=== PATIENT | male | born 1985 | race Caucasian/White ===

== ENCOUNTER 2020-10-08 00:39 | Observation (INO) | payer SELFPAY ==
[2020-10-08 02:19] LABS: ABSOLUTE EOSINOPHILS # (AUTO) 0.3 10^3/uL (0.0-0.6); ABSOLUTE LYMPHOCYTES (AUTO) 1.5 10^3/uL (0.5-4.7); ABSOLUTE MONOCYTES (AUTO) 0.7 10^3/uL (0.1-1.4); ABSOLUTE NEUT (AUTO) 5.8 10^3/uL (1.7-8.2); BASOPHILS % (AUTO) 0.3 % (0-2); EOSINOPHILS % (AUTO) 3.5 % (0-6); HEMATOCRIT 47.1 % (37.9-51.0); HEMOGLOBIN 16.4 g/dL (13.5-17.0); LYMPHOCYTES % (AUTO) 17.5 % (13-45); MEAN CORPUSCULAR HEMOGLOBIN 30.4 pg (27.0-33.4); MEAN CORPUSCULAR HGB CONC 34.9 g/dL (32.0-36.0); MEAN CORPUSCULAR VOLUME 87 fl (80-97); MONOCYTES % (AUTO) 8.2 % (3-13); PLATELET COUNT 268 10^3/uL (150-450); RED BLOOD COUNT 5.41 10^6/uL (4.35-5.55); RED CELL DISTRIBUTION WIDTH 13.3 % (11.5-14.0); SEGMENTED NEUTROPHILS % (AUTO) 70.5 % (42-78); TOTAL CELLS COUNTED % (AUTO) 100 %; WHITE BLOOD COUNT 8.3 10^3/uL (4.0-10.5)
[2020-10-08 02:24] LABS: ALBUMIN 4.6 g/dL (3.5-5.0); ALKALINE PHOSPHATASE 57 U/L (38-126); ANION GAP 10 (5-19); ASPARTATE AMINO TRANSFERASE 27 U/L (17-59); BILIRUBIN,DIRECT 0.1 mg/dL (0.0-0.4); BILIRUBIN,TOTAL 0.8 mg/dL (0.2-1.3); BLOOD UREA NITROGEN 12 mg/dL (7-20); CARBON DIOXIDE 29 mmol/L (22-30); CHLORIDE 100 mmol/L (98-107); CREATINE KINASE 81 U/L (55-170); GLUCOSE 108 mg/dL (75-110); POTASSIUM 4.1 mmol/L (3.6-5.0); TOTAL PROTEIN 7.6 g/dL (6.3-8.2)
[2020-10-08 02:38] LABS: CREATINE KINASE MB 1.23 ng/mL (<4.55)
[2020-10-08 02:40] LABS: TROPONIN I < 0.012 ng/mL
[2020-10-08] MEDS ORDERED: BENZONATATE 100 MG CAPSULE PO ONE (03:07)
[2020-10-08] MEDS ORDERED: ONDANSETRON 4 MG TAB.RAPDIS PO ONE (03:21)
[2020-10-08] MEDS ORDERED: ACETAMINOPHEN 325 MG TABLET PO ONE (03:21)
--- NOTE | 2020-10-08 03:48 | ER Document Report ---
ED General <JOLIE SOLANO - Last Filed: 10/08/20 08:24> <WERNER LEYVA - Last Filed: 10/08/20 13:40> - General Chief Complaint: Flu Symptoms Stated Complaint: ABDOMINAL PAIN/CHILLS/FEVER/NAUSEA Time Seen by Provider: 10/08/20 03:04 Notes: Patient is a 35-year-old male no past medical history presents to the emergency department with a chief complaint of abdominal pain, chills, feeling feverish, diarrhea, and vomiting. Patient states that he had his symptoms for the past 3 days. Reports a cough. 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 Patient reports the pain is in his right upper quadrant. States that it is constant. Denies any past medical history. Patient does not take any medications on a regular basis. Patient has history of an appendectomy. (JOLIE SOLANO) - Related Data Allergies/Adverse Reactions: No Known Allergies Allergy (Verified 10/08/20 01:08) Past Medical History - Social History Smoking Status: Current Every Day Smoker <JOLIE SOLANO - Last Filed: 10/08/20 08:24> - Social History Family History: Reviewed & Not Pertinent <WERNER LEYVA - Last Filed: 10/08/20 13:40> Review of Systems <JOLIE SOLANO - Last Filed: 10/08/20 08:24> - Review of Systems Notes: REVIEW OF SYSTEMS: CONSTITUTIONAL : Denies recent illness. Denies recent unintentional weight loss. See HPI. EENT: Denies eye, ear, throat, or mouth pain, discharge, or symptoms. See HPI. CARDIOVASCULAR: Denies chest pain. RESPIRATORY: See HPI. GASTROINTESTINAL: See HPI. GENITOURINARY: Denies difficulty urinating, burning, blood in urine, urgency or frequency. MUSCULOSKELETAL: Denies neck and back pain. Denies joint pain or swelling. SKIN: Denies rash, itchiness, or lesions HEMATOLOGIC : Denies easy bruising or bleeding. LYMPHATIC: Denies swollen, painful, enlarged glands. NEUROLOGICAL: Denies no numbness or tingling denies weakness. Denies headache. Denies altered mental status. Denies alteration in speech. PSYCHIATRIC: Denies stress, anxiety, alteration in sleep patterns, or depression. All other systems reviewed and negative. (JOLIE SOLANO) Physical Exam <JOLIE SOLANO - Last Filed: 10/08/20 08:24> - Vital signs Vitals: Temp Pulse Resp BP Pulse Ox 97.9 F 102 H 20 126/93 H 98 10/08/20 00:48 10/08/20 00:48 10/08/20 00:48 10/08/20 00:48 10/08/20 00:48 - Notes Notes: PHYSICAL EXAMINATION: GENERAL: Appears well, healthy, well-nourished, no acute distress. HEAD: Normocephalic, atraumatic. EYES: PERRL, conjunctiva normal, all extraocular movements intact, sclera nonicteric ENT: Moist mucous membranes. NECK: Supple, no noticeable swelling, redness, rash. Normal range of motion. LUNGS: Equal breath sounds bilaterally and clear to auscultation. No wheezes rales or rhonchi. CARDIOVASCULAR: S1-S2, regular rate, regular rhythm. Radial pulses 2+, normal. ABDOMEN: Normoactive bowel sounds. Tender right upper quadrant. Guarding noted. EXTREMITIES: Normal strength and range of motion, no pitting or edema. No cyanosis. NEUROLOGICAL: Moves all extremities upon command. Strength 5/5 in all extremities. PSYCH: Normal mood, normal affect. SKIN: Warm, dry. No rash, lesions, ulcerations noted. Normal skin turgor. (JOLIE SOLANO) Course - Laboratory Results Result Diagrams: 10/08/20 01:45 10/08/20 01:45 <JOLIE SOLANO - Last Filed: 10/08/20 08:24> - Laboratory Results Result Diagrams: 10/08/20 01:45 10/08/20 01:45 Critical Laboratory Results Reviewed: No Critical Results - Radiology Results Critical Radiology Results Reviewed: No Critical Results <WERNER LEYVA - Last Filed: 10/08/20 13:40> - Re-evaluation Re-evalutation: 10/08/20 06:15 Hematology is unremarkable. Chemistries are also unremarkable. Troponin ordered in triage she is negative. LFTs are normal. Lipase is unremarkable. Influenza test is negative. I reassessed the patient and he still has right upper quadrant abdominal pain after receiving 1 mg of Dilaudid. From another dosing to see if this helps with his abdominal pain. 10/08/20 07:35 He continues to be in pain despite another milligram of Dilaudid. I spoke with Dr. Calzada, the surgeon on-call. He will evaluate the patient. (XIOMARAJOLIE M) 10/08/20 10:08 Dr. Calzada came to evaluate the patient at approximately 845 this morning. He advises the patient does not want to have surgery, he would like us to give the patient clear liquids. Nursing staff has come to me telling me that the patient had right upper quadrant cramping and diarrhea after having a clear fluids. The nursing floor supervisor called Dr. Calzada back and asked him to come down to reevaluate the patient. Dr. Mason has come back to department, he wants a rapid Covid done which is currently pending. We will await this to determine the final disposition of the patient 10/08/20 10:55 Rapid Covid is negative. I called and updated Dr. Calzada, Dr. Calzada is coming back to speak to the patient. 10/08/20 11:06 Dr. Beltran came back to see the patient, he would like the patient to have a low-fat regular diet, if he is able to tolerate this he will go home if he is unable to tolerate it he will be admitted and have a cholecystectomy done tomorrow. 10/08/20 13:12 Patient reports that he continues to have pain. He is very upset stating that no one has given him pain medications. Patient does admit that he has not asked for pain medicines nor has he communicated his pain with the nurse. Patient is stating that he wants to leave so he can go to another hospital. I have tried extensively to talk the patient into staying here so that he can be admitted by Dr. Calzada considering he is continuing to have pain after eating. I have also notified the charge nurse Phyllis also to that she can try to speak to the patient. I have placed an order for 4 mg of morphine IV in an attempt to get the patient's pain under control. 10/08/20 13:39 Patient now agrees to stay in the hospital. I have contacted Dr. Canales who agrees to admit the patient. Patient's pain has improved after administration of 4 mg of morphine. (WERNER LEYVA) - Vital Signs Vital signs: Temp Pulse Resp BP Pulse Ox 97.6 F 75 19 142/68 H 99 10/08/20 07:57 10/08/20 05:25 10/08/20 13:22 10/08/20 13:22 10/08/20 13:22 Discharge <XIOMARAJOLIE M - Last Filed: 10/08/20 08:24> - Discharge Admitting Provider: Surgicalist Unit Admitted: Surgical Floor <WERNER LEYVA - Last Filed: 10/08/20 13:40> - Discharge Clinical Impression: Cholelithiasis Qualifiers: Cholelithiasis location: gallbladder Cholecystitis presence: with cholecystitis Cholecystitis acuity: acute Biliary obstruction: without biliary obstruction Qualified Code(s): K80.00 - Calculus of gallbladder with acute cholecystitis without obstruction Abdominal pain Qualifiers: Abdominal location: right upper quadrant Qualified Code(s): R10.11 - Right upper quadrant pain Condition: Stable Disposition: ADMITTED OBSERVATION
--- NOTE | 2020-10-08 04:18 | RADIOLOGY REPORT (SQ) ---
AP Portable chest: 10/08/2020 3:17 AM COMMUNITY ORGANIZER History: 35-year old patient with cough. Comparison: None available Findings: The cardiomediastinal silhouette is normal in size. No pneumothorax is seen. No acute airspace opacities are seen. No discrete pleural effusion is apparent. Impression: No acute airspace opacities are seen.
--- NOTE | 2020-10-08 04:20 | RADIOLOGY REPORT (SQ) ---
Ultrasound of the right upper quadrant of the abdomen: 10/08/2020 3:17 AM JOINT SEALER Technique: Multiple grayscale color Doppler images of the right upper quadrant of the abdomen were obtained. Comparison: None available History: 35-year old patient with right upper quadrant abdominal pain. Findings: The visualized portions of the hepatic parenchyma appears diffusely echogenic. There is normal direction of flow seen in the main portal vein. Cholelithiasis is seen with no evidence of gallbladder wall thickening or pericholecystic fluid. Sonographic Smith's sign was positive. The common duct measures 2-3 mm. The right kidney measures up to 11.3 cm in length. The right kidney demonstrates normal cortical echogenicity with no evidence to suggest hydronephrosis. The visualized portions of the IVC, abdominal aorta, and pancreatic head appear normal. No free intraperitoneal fluid is seen. Impression: There is cholelithiasis with a positive sonographic Smith's sign. This could reflect evidence of acute cholecystitis in the appropriate clinical setting. Hepatic steatosis
[2020-10-08] MEDS ORDERED: HYDROMORPHONE HCL INJ/PF 2 MG/ML AMPULE IV ONE ×2 (04:58→06:14)
[2020-10-08] MEDS ORDERED: NORMAL SALINE 1000 ML 1,000 ML IV ONE (04:58)
[2020-10-08 05:20] LABS: A TYPE INFLUENZA AG NEGATIVE (NEGATIVE); B INFLUENZA AG NEGATIVE (NEGATIVE)
[2020-10-08] MEDS ORDERED: MORPHINE SULFATE 10 MG/ML INJ IV ONE (13:10)
[2020-10-08] MEDS ORDERED: ONDANSETRON HCL INJ/PF 4 MG/2 ML SDV IV ONE (13:19)
--- NOTE | 2020-10-08 13:22 | EKG REPORT ---
SEVERITY:- NORMAL ECG - SINUS RHYTHM : Confirmed by: Lalito Oliver 08-Oct-2020 13:21:56
[2020-10-08] MEDS ORDERED: PIPERACILLIN/TAZOBACTAM 3.375 GM VIAL IV ONE (13:39)
[2020-10-08] MEDS ORDERED: GLUCAGON,HUMAN RECOMB 1 MG INJ SUBCUT PRN (14:01)
[2020-10-08] MEDS ORDERED: MORPHINE SULFATE 10 MG/ML INJ IV PRN (14:01)
[2020-10-08] MEDS ORDERED: DEXTROSE 40% GEL 15 GM TUBE PO PRN ×2 (14:01)
[2020-10-08] MEDS ORDERED: DEXTROSE 50%-WATER 25 GM/50 ML DISP.SYRIN IV PRN ×2 (14:01)
--- NOTE | 2020-10-08 14:01 | PDOC H&P ---
History of Present Illness Admission Date/PCP: 10/08/2020 Patient complains of: Abdominal pains History of Present Illness: SYED KERNS is a 35 year old male who started having abdominal pains with diarrhea about 2 days ago. This was associated with nausea and vomiting and because of persistent pains went to ED. pains are primarily along the right upper quadrant and epigastric areas. An ultrasound of the gallbladder showed gallstones but no evidence of acute cholecystitis but patient had positive Smith sign. His white count is normal and LFTs are normal. Denies any fever nor chills. Patient initially refused surgery and attempted p.o. intake but failed. Patient unable to eat. He still continued to have pains of the right upper quadrant and epigastric areas and subsequently will be admitted for IV antibiotics and possible laparoscopic cholecystectomy tomorrow by Dr. Lee. Social History Smoking Status: Current Every Day Smoker Family History Family History: Reviewed & Not Pertinent Parental Family History Reviewed: Yes Children Family History Reviewed: No Sibling(s) Family History Reviewed.: No Medication/Allergy Home Medications: No Home Medications 10/08/20 Allergies/Adverse Reactions: No Known Allergies Allergy (Verified 10/08/20 01:08) Review of Systems Constitutional: PRESENT: as per HPI Gastrointestinal: PRESENT: abdominal pain, diarrhea, nausea, vomiting Physical Exam Vital Signs: Temp Pulse Resp BP Pulse Ox 97.6 F 75 19 142/68 H 99 10/08/20 07:57 10/08/20 05:25 10/08/20 13:22 10/08/20 13:22 10/08/20 13:22 Intake & Output 10/07/20 10/08/20 10/09/20 06:59 06:59 06:59 Intake Total 1000 Balance 1000 Weight 84 kg General appearance: PRESENT: mild distress Head exam: PRESENT: atraumatic Eye exam: PRESENT: conjunctiva pink Mouth exam: PRESENT: moist Neck exam: PRESENT: full ROM Respiratory exam: PRESENT: clear to auscultation irish Cardiovascular exam: PRESENT: RRR Pulses: PRESENT: normal radial pulses Vascular exam: PRESENT: normal capillary refill GI/Abdominal exam: PRESENT: soft, tenderness - Epigastric and right upper quadrant areas Rectal exam: PRESENT: deferred Extremities exam: PRESENT: full ROM Musculoskeletal exam: PRESENT: full ROM Neurological exam: PRESENT: alert, oriented to person, oriented to place, oriented to time, oriented to situation Psychiatric exam: PRESENT: appropriate affect Skin exam: PRESENT: normal color, warm Results Laboratory Results: 10/08/20 01:45 10/08/20 01:45 10/08/20 10/08/20 10/08/20 01:45 01:45 01:45 WBC 8.3 RBC 5.41 Hgb 16.4 Hct 47.1 MCV 87 MCH 30.4 MCHC 34.9 RDW 13.3 Plt Count 268 Seg Neutrophils % 70.5 Sodium 138.6 Potassium 4.1 Chloride 100 Carbon Dioxide 29 Anion Gap 10 BUN 12 Creatinine 1.14 Est GFR ( Amer) > 60 Glucose 108 Calcium 10.0 Total Bilirubin 0.8 AST 27 Alkaline Phosphatase 57 Total Protein 7.6 Albumin 4.6 Lipase 62.9 10/08/20 10/08/20 01:45 01:45 Creatine Kinase 81 CK-MB (CK-2) 1.23 Troponin I < 0.012 Assessment & Plan - Diagnosis (1) Nausea vomiting and diarrhea Is this a current diagnosis for this admission?: Yes (2) Abdominal pain Qualifiers: Abdominal location: right upper quadrant Qualified Code(s): R10.11 - Right upper quadrant pain Is this a current diagnosis for this admission?: Yes (3) Cholelithiasis Qualifiers: Cholelithiasis location: gallbladder Cholecystitis presence: with cholecy stitis Cholecystitis acuity: acute Biliary obstruction: without biliary obstruction Qualified Code(s): K80.00 - Calculus of gallbladder with acute cholecystitis without obstruction Is this a current diagnosis for this admission?: Yes - Time Time Spent: 30 to 50 Minutes Anticipated Discharge Disposition: Home, Self Care Anticipated Discharge Timeframe: within 48 hours - Inpatient Certification Medical Necessity: Need for IV Antibiotics, Need for Surgery - Plan Summary Plan Summary: 35-year-old male with abdominal pains nausea vomiting and diarrhea past 2 days. Pains persistent and went to ED today where he had an ultrasound of the gallbladder which showed gallstones with no definite evidence of cholecystitis. His white count is normal and his LFTs are normal. He was unable to eat or drink while in the ED and therefore was admitted for IV antibiotics and possible laparoscopic cholecystectomy tomorrow.
[2020-10-08] MEDS: DEXTROSE 5%-LACTATED RINGERS 1,000 ML IV PRN ×2 (15:58→21:39)
[2020-10-08] MEDS: ONDANSETRON HCL INJ/PF 4 MG/2 ML SDV IV PRN ×2 (16:00→21:39)
[2020-10-08] MEDS: KETOROLAC TROMETHAMINE INJ/PF 30 MG/1 ML SDV IV SCH (17:24)
[2020-10-08] MEDS ORDERED: PIPERACILLIN/TAZOBACTAM 3.375 GM VIAL IV SCH (18:00)
[2020-10-08] MEDS: PIPERACILLIN SODIUM/TAZOBACTAM 3.375 GM in NORMAL SALINE 100 ML IV SCH (21:39)
[2020-10-09] MEDS: KETOROLAC TROMETHAMINE INJ/PF 30 MG/1 ML SDV IV SCH ×2 (00:41→05:38)
[2020-10-09] MEDS: PIPERACILLIN SODIUM/TAZOBACTAM 3.375 GM in NORMAL SALINE 100 ML IV SCH (03:18)
[2020-10-09 04:27] VITALS: BP 101/44
[2020-10-09] MEDS: DEXTROSE 5%-LACTATED RINGERS 1,000 ML IV PRN (06:44)
--- NOTE | 2020-10-09 09:58 | PDOC PROGRESS REPORT ---
Subjective Date:: 10/09/20 Reason For Visit: CHOLELITHIASIS,ABDOMINAL PAIN Patient was seen at approximately 745 this morning. He had an uneventful night, and had no complaints. He last ate at 2:00 in the morning. He told the nurse he did not want to have surgery, and at bedside this morning he stated he did not want to be cut by anybody at [facility]. Physical Exam Vital Signs: Temp Pulse Resp BP Pulse Ox 97.7 F 63 15 101/44 L 98 10/09/20 03:26 10/09/20 03:26 10/09/20 03:26 10/09/20 03:26 10/09/20 03:26 Intake & Output 10/08/20 10/09/20 10/10/20 06:59 06:59 06:59 Intake Total 4204 Balance 4204 Weight 84 kg 86.2 kg General appearance: PRESENT: no acute distress GI/Abdominal exam: PRESENT: other - Soft, negligible tenderness, no peritoneal signs no rigidity. Results Laboratory Results: 10/08/20 01:45 10/08/20 01:45 10/08/20 10/08/20 01:45 01:45 Creatine Kinase 81 CK-MB (CK-2) 1.23 Troponin I < 0.012 Assessment & Plan - Diagnosis (1) Cholelithiasis Qualifiers: Cholelithiasis location: gallbladder Cholecystitis presence: with cholecystitis Cholecystitis acuity: acute Biliary obstruction: without biliary obstruction Qualified Code(s): K80.00 - Calculus of gallbladder with acute cholecystitis without obstruction Is this a current diagnosis for this admission?: Yes Plan: Impression symptomatic cholelithiasis, with likely chronic cholecystitis, normal LFTs, no evidence of sepsis. Patient refuses surgery at [facility] Recommendations: 1. I spent time at patient's bedside explaining may develop gallstone pancreatitis, retained common duct stone with cholangitis, and even sepsis by postponing surgery. In the least, he may end up back to the emergency department with similar symptoms, requiring a repeat work-up etc. 2. I told the patient we would short amount time discharging home. Approximately 1 hour later was called by the nurse, Radha, who told me the patient was leaving AMA. (2) Abdominal pain Qualifiers: Abdominal location: right upper quadrant Qualified Code(s): R10.11 - Right upper quadrant pain - Time Anticipated Discharge Disposition: Home, Self Care Anticipated Discharge Timeframe: within 24 hours
--- NOTE | 2020-10-09 10:04 | PDOC DISCHARGE SUMMARY ---
General - Admit/Disc Date/PCP Admission Date/Primary Care Provider: 10/08/20 13:53 Discharge Date: 10/09/20 - Discharge Diagnosis Final Diagnosis: Patient is a 35-year-old white male presents emergency department planing of abdominal pain nausea, and bloating. He was evaluated found to have a gallstones by ultrasonography. He was admitted to the surgical service for definitive management. His liver function studies within normal limits. The patient was kept n.p.o. after midnight, and had a Covid test which was negative. The patient told Dr. Calzada, admitting surgeon, he did not want to have surgery at [facility]. The following morning Dr. Lee made rounds on the patient, found him to be in no acute distress however insisted again he did want to be operated on at [facility]. I reviewed the risk, benefits and alternatives to nonoperative management including recurrent cholecystitis, choledocholithiasis, retained common duct stone complications thereof, and gallstone pancreatitis. Dr. Lee also emphasized patient could develop sepsis, requiring more hospital resources etc. Patient declined again to have surgery. He was offered a diet. 1 hour later he left the hospital AMA. - Assessment Summary: See final diagnosis: Symptomatic cholelithiasis with cholecystitis - Additional Information Resuscitation Status: Full Code Discharge Diet: As Tolerated Home Medications: No Home Medications 10/08/20 Additional Information: Note: Patient left [facility] AMA History of Present Illiness History of Present Illness: SYED KERNS is a 35 year old male Physical Exam Vital Signs: Temp Pulse Resp BP Pulse Ox 97.7 F 63 15 101/44 L 98 10/09/20 03:26 10/09/20 03:26 10/09/20 03:26 10/09/20 03:26 10/09/20 03:26 Intake & Output 10/08/20 10/09/20 10/10/20 06:59 06:59 06:59 Intake Total 4204 Balance 4204 Weight 84 kg 86.2 kg Results Laboratory Results: WBC 8.3 10^3/uL (4.0-10.5) 10/08/20 01:45 RBC 5.41 10^6/uL (4.35-5.55) 10/08/20 01:45 Hgb 16.4 g/dL (13.5-17.0) 10/08/20 01:45 Hct 47.1 % (37.9-51.0) 10/08/20 01:45 MCV 87 fl (80-97) 10/08/20 01:45 MCH 30.4 pg (27.0-33.4) 10/08/20 01:45 MCHC 34.9 g/dL (32.0-36.0) 10/08/20 01:45 RDW 13.3 % (11.5-14.0) 10/08/20 01:45 Plt Count 268 10^3/uL (150-450) 10/08/20 01:45 Lymph % (Auto) 17.5 % (13-45) 10/08/20 01:45 Woodson % (Auto) 8.2 % (3-13) 10/08/20 01:45 Eos % (Auto) 3.5 % (0-6) 10/08/20 01:45 Baso % (Auto) 0.3 % (0-2) 10/08/20 01:45 Absolute Neuts (auto) 5.8 10^3/uL (1.7-8.2) 10/08/20 01:45 Absolute Lymphs (auto) 1.5 10^3/uL (0.5-4.7) 10/08/20 01:45 Absolute Monos (auto) 0.7 10^3/uL (0.1-1.4) 10/08/20 01:45 Absolute Eos (auto) 0.3 10^3/uL (0.0-0.6) 10/08/20 01:45 Absolute Basos (auto) 0.0 10^3/uL (0.0-0.2) 10/08/20 01:45 Seg Neutrophils % 70.5 % (42-78) 10/08/20 01:45 Sodium 138.6 mmol/L (137-145) 10/08/20 01:45 Potassium 4.1 mmol/L (3.6-5.0) 10/08/20 01:45 Chloride 100 mmol/L (98-107) 10/08/20 01:45 Carbon Dioxide 29 mmol/L (22-30) 10/08/20 01:45 Anion Gap 10 (5-19) 10/08/20 01:45 BUN 12 mg/dL (7-20) 10/08/20 01:45 Creatinine 1.14 mg/dL (0.52-1.25) 10/08/20 01:45 Est GFR ( Amer) > 60 (>60) 10/08/20 01:45 Est GFR (MDRD) Non-Af > 60 (>60) 10/08/20 01:45 Glucose 108 mg/dL (75-110) 10/08/20 01:45 Calcium 10.0 mg/dL (8.4-10.2) 10/08/20 01:45 Total Bilirubin 0.8 mg/dL (0.2-1.3) 10/08/20 01:45 Direct Bilirubin 0.1 mg/dL (0.0-0.4) 10/08/20 01:45 Neonat Total Bilirubin Not Reportable 10/08/20 01:45 Neonat Direct Bilirubin Not Reportable 10/08/20 01:45 Neonat Indirect Bili Not Reportable 10/08/20 01:45 AST 27 U/L (17-59) 10/08/20 01:45 ALT 22 U/L (<50) 10/08/20 01:45 Alkaline Phosphatase 57 U/L (38-126) 10/08/20 01:45 Creatine Kinase 81 U/L (55-170) 10/08/20 01:45 CK-MB (CK-2) 1.23 ng/mL (<4.55) 10/08/20 01:45 Troponin I < 0.012 ng/mL 10/08/20 01:45 Total Protein 7.6 g/dL (6.3-8.2) 10/08/20 01:45 Albumin 4.6 g/dL (3.5-5.0) 10/08/20 01:45 Lipase 62.9 U/L (23-300) 10/08/20 01:45 COVID-19 Source Cancelled 10/08/20 03:55 COVID-19 (BART) Cancelled 10/08/20 03:55 Influenza A (Rapid) NEGATIVE (NEGATIVE) 10/08/20 03:55 Influenza A (RT-PCR) NEGATIVE (NEGATIVE) 10/08/20 03:55 Influenza B (Rapid) NEGATIVE (NEGATIVE) 10/08/20 03:55 Influenza B (RT-PCR) NEGATIVE (NEGATIVE) 10/08/20 03:55 RSV (RT-PCR) NEGATIVE (NEGATIVE) 10/08/20 03:55 SARS-CoV-2 Rap RNA(RT-PCR) NEGATIVE (NEGATIVE) 10/08/20 03:55 10/08/20 01:45 CK-MB (CK-2) 1.23 Troponin I < 0.012
== END 2020-10-09 09:40 | disposition left against medical advice (07) ==
LOC: ER 00:39 → EH 13:53 → 5 15:55
PROVIDERS: ADMIT Surgery; ATTEND Surgery
DX: K80.00 Calculus of gallbladder with acute cholecystitis without obstruction (principal); R10.9 Unspecified abdominal pain; R11.2 Nausea with vomiting, unspecified; R14.0 Abdominal distension (gaseous); R10.13 Epigastric pain; R10.11 Right upper quadrant pain; R50.9 Fever, unspecified; Z20.828 Contact with and (suspected) exposure to other viral communicable diseases; F17.200 Nicotine dependence, unspecified, uncomplicated
CPT/HCPCS: 93005; 96376; 99285; 96361; 96374; 96375; 36415; 82553; 82550; 83690; 85025; 0241U ×4; 80053; 84484; 87804; 71045; 76705; 93010; G0378 ×3; S0119; J1885 ×2; J2270; J1170; J2405; J7121 ×2; J7050 ×2; J7030; J2543 ×2; C9803

== ENCOUNTER 2020-10-09 10:33 | Emergency (ER) | payer SELFPAY ==
[2020-10-09 10:56] VITALS: BP 128/77
[2020-10-09] MEDS ORDERED: NORMAL SALINE 1000 ML 1,000 ML IV ONE (11:24)
--- NOTE | 2020-10-09 11:26 | ER Document Report ---
ED Medical Screen (RME) - General Chief Complaint: Dizziness Stated Complaint: LIGHTHEADED,DISORIENTED Time Seen by Provider: 10/09/20 11:21 - HPI Notes: 10/09/20 11:24 35-year-old male presents back to ED after leaving AMA 1 hour prior for evaluation of dizziness and lightheadedness. Patient was admitted to have his gallbladder removed by Dr. Shanks. Patient stated he did not want of surgery here and was planning to leave however got as far as the parking lot before he had dizziness and lightheadedness. Patient does have persistent right upper quadrant pain. Patient also notes that he has not been able to move his bowels. Denies chest pain or shortness of breath - Related Data Allergies/Adverse Reactions: No Known Allergies Allergy (Verified 10/09/20 11:22) Past Medical History - Social History Chew tobacco use (# tins/day): No Frequency of alcohol use: None Drug Abuse: None Psychiatric Medical History: Denies: Hx Depression Physical Exam - Vital signs Vitals: Temp Pulse Resp BP Pulse Ox 98.2 F 79 16 128/77 H 99 10/09/20 10:50 10/09/20 10:50 10/09/20 10:50 10/09/20 10:50 10/09/20 10:50 Notes: Tenderness to palpation on exam in the right upper quadrant. Clear lung sounds to auscultation throughout. Course - Vital Signs Vital signs: Temp Pulse Resp BP Pulse Ox 98.2 F 79 16 128/77 H 99 10/09/20 10:50 10/09/20 10:50 10/09/20 10:50 10/09/20 10:50 10/09/20 10:50
--- NOTE | 2020-10-09 12:35 | ER Document Report ---
Doctor's Note Notes: 10/09/20 12:34 Patient was placed in room 21 to be seen by provider. I assigned myself to this case and when I went to the exam room 21 patient was not in the room. Apparently patient has eloped without any witnesses.
== END 2020-10-09 12:15 | disposition left against medical advice (07) ==
LOC: ER 10:33
DX: R42 Dizziness and giddiness (principal); R10.11 Right upper quadrant pain; R19.4 Change in bowel habit; Z53.20 Procedure and treatment not carried out because of patient's decision for unspecified reasons
CPT/HCPCS: 99281